=== PATIENT | male | born 1955 | race Caucasian/White ===

== ENCOUNTER 2022-12-10 14:48 | Inpatient (IN) | payer MEDICARE, OTHER ==
[~2022-12-10] VITALS: Ht 170.2 cm; Wt 100.0 kg
--- NOTE | 2022-12-10 15:00 | NUR ---
ARRIVED AT BEDSIDE. PT ALERT AND ORIENTED. SPEECH IS CLEAR. 1510 TELE NEURO EXAM COMPLETED 1540 PT ON WARFARIN FOR CHRONIC AFLUTTER, HOWEVER INR IS SUB THERAPEUTIC. CONSIDERING TNK. 1600 PT DECLINING TNK, FEELS IS IMPROVING. PT HAS HAD PER HIS DESCRIPTION 7 PRIOR TIAS POSSIBLE PRIOR STROKES. HAS CML AND IS TO BEGIN TX UPON RETURN TO [facility].
--- NOTE | 2022-12-10 15:00 | NUR ---
TO CT FOR CTA WITH GFR OF 38. PT STRUGGLES WITH CHRONIC RENAL ISSUES. AWARE.
[2022-12-10 15:25] LABS: BASOPHILS # (AUTO) 0.3 X10'3 (0-0.2); BASOPHILS % (AUTO) 0.8 % (0-1); EOSINOPHILS # (AUTO) 0.7 X10'3 (0-0.9); EOSINOPHILS % (AUTO) 1.9 % (0-6); HEMATOCRIT 36.6 % (42.0-52.0); HEMOGLOBIN 11.4 g/dl (14.0-17.9); LYMPHOCYTES # (AUTO) 2.1 X10'3 (1.1-4.8); LYMPHOCYTES % (AUTO) 5.6 % (21-51); MEAN CORPUSCULAR HEMOGLOBIN 30.2 PG (27.0-31.0); MEAN CORPUSCULAR HGB CONC 31.3 g/dL (33.0-36.5); MEAN CORPUSCULAR VOLUME 96.5 FL (78-98); MONOCYTES # (AUTO) 2.9 X10'3 (0-0.9); MONOCYTES % (AUTO) 7.6 % (2-12); NEUTROPHILS # (AUTO) 31.9 X10'3 (1.8-7.7); NEUTROPHILS % (AUTO) 84.1 % (42-75); PLATELET COUNT 731 X10'3 (140-440); RED BLOOD COUNT 3.79 X10'6 (4.70-6.10); RED CELL DISTRIBUTION WIDTH 21.6 % (11.5-14.5)
--- NOTE | 2022-12-10 15:30 | NUR ---
PT SAT AT EDGE OF Strap VERY SHAKEY. ABLE TO STAND WITH STANDBY ASSIST. ABLE TO BEAR WT EQUALLY. VISION IMPROVED. VISION DESCRIBED A LITTLE BLURRY YET IN RIGHT EYE.
[2022-12-10 15:35] LABS: APTT 31 SECONDS (22-32)
[2022-12-10 15:38] LABS: ALANINE AMINOTRANSFERASE 35 U/L (12-78); ALBUMIN 3.7 G/DL (3.4-5.0); ALKALINE PHOSPHATASE 64 IU/L (46-116); ANION GAP 7 (8-16); ASPARTATE AMINO TRANSFERASE 30 U/L (10-37); BILIRUBIN,TOTAL 0.3 MG/DL (0.1-1.0); BLOOD UREA NITROGEN 24 MG/DL (7-18); BUN/CREATININE RATIO 13.6 (5.4-32.0); CALCIUM 9.4 MG/DL (8.5-10.1); CHLORIDE 99 MMOL/L (99-107); CREATININE 1.77 MG/DL (0.60-1.10); GLUCOSE 396 MG/DL (70-104); POTASSIUM 4.2 MMOL/L (3.5-5.1); SODIUM 134 MMOL/L (135-145); TOTAL CARBON DIOXIDE 27.7 MMOL/L (24-32); TOTAL PROTEIN 7.4 G/DL (6.4-8.2); eGFR 38 ML/MIN
--- NOTE | 2022-12-10 15:40 | NUR ---
Ataxia noted on the right with finger to nose and heel to lomeli. Mild right arm and leg weakness, able to lift and hold both extremities after initial dip.
[2022-12-10 15:44] LABS: MAGNESIUM 2.1 MG/DL (1.5-2.4)
[2022-12-10 16:28] LABS: TOTAL CELLS COUNTED 100
[2022-12-10 16:29] LABS: ANISOCYTOSIS 3+; PLATELET ESTIMATE INCREASED
[2022-12-10 16:30] LABS: LARGE PLATELETS FEW
[2022-12-10] MEDS ORDERED: iohexol 350MG/ML 100ml bottle IV ONE (16:40)
--- NOTE | 2022-12-10 17:17 | NUR ---
1540 # 20 ANGIOCATH INSERTED WITH SINGLE ATTEMPT INTO RIGHT UPPER INNER ARM.
--- NOTE | 2022-12-10 17:25 | NUR ---
PT INTIALLY C/O WHITE LIGHTS IN BOTH EYES AND BLURRED VISION, WHICH HAS IMPROVED. PTS SPOUSE SAYS HE HAS RIGHT SIDED WEAKNESS WHEN HE HAS HIS "TIAS." WHICH IMPROVE OVER TIME.
--- NOTE | 2022-12-10 17:42 | NUR ---
's phone number: Carmen Mcmanus [phone] (cell phone)
[2022-12-10] MEDS ORDERED: morphine 4 MG/ML inj SYRINge IV ONE (17:55)
[2022-12-10] MEDS ORDERED: glucagon, human recombinant 1mg kit SUBCUT PRN (22:45)
[2022-12-10] MEDS ORDERED: MESSAGE TO PHARMACY PO ONE (22:45)
[2022-12-10] MEDS ORDERED: dextrose 50%-water 50ml dispensing syringe IV PRN ×2 (22:45)
[2022-12-10] MEDS ORDERED: DEXTROSE 15 GM of carb/4 tabs (each vial/BOTTLE has 4 tablets) PO PRN ×2 (22:45)
[2022-12-11] VITALS (7 sets, daily range): BP systolic 120–162; BP diastolic 53–72
[2022-12-11] MEDS ORDERED: normal saline 1000ml 1,000 ML IV SCH (01:40)
[2022-12-11] MEDS ORDERED: diphenhydrAMINE 25mg capsule PO PRN (01:40)
[2022-12-11] MEDS ORDERED: acetaminophen 325mg tablet PO PRN ×2 (01:40)
[2022-12-11] MEDS ORDERED: acetaminophen 650mg rectal suppository RC PRN (01:40)
[2022-12-11] MEDS ORDERED: HYDROcodone/acetaminophen 5mg/325mg tablet PO PRN (01:40)
[2022-12-11] MEDS ORDERED: magnesium hydroxide 30ml (MOM) UD suspension PO PRN (01:40)
[2022-12-11] MEDS ORDERED: ondansetron 4mg rapidly disintigrating tab PO PRN (01:40)
[2022-12-11] MEDS ORDERED: bisacodyl 10mg suppository rectal RC PRN (01:40)
[2022-12-11] MEDS ORDERED: morphine 2 MG/ML inj. syringe IV PRN (01:40)
[2022-12-11] MEDS ORDERED: ondansetron/PF 4mg/2ml inj IV PRN (01:40)
[2022-12-11] MEDS ORDERED: diphenhydrAMINE 50 mg/ml inj IV PRN (01:40)
[2022-12-11] MEDS ORDERED: mag hydrox/Alum hydrox/simeth 30ml oral suspension PO PRN (01:40)
[2022-12-11 02:00] LABS: HEMOGLOBIN A1C 8.6 % (4.5-6.2)
[2022-12-11 02:13] LABS: PHOSPHORUS 4.7 MG/DL (2.3-4.5)
[2022-12-11] MEDS ORDERED: FURO20TA4 PO (02:26)
[2022-12-11] MEDS ORDERED: DULO60CA65 PO (02:26)
[2022-12-11] MEDS ORDERED: ESCI-8 PO (02:26)
[2022-12-11] MEDS ORDERED: OMEP20TA43 PO (02:26)
[2022-12-11] MEDS ORDERED: FENO48TA10 PO (02:26)
[2022-12-11] MEDS ORDERED: CARV6.253 PO (02:26)
[2022-12-11] MEDS ORDERED: PRAV80TA3 PO (02:28)
[2022-12-11] MEDS ORDERED: WARF-55 PO (02:28)
[2022-12-11] MEDS ORDERED: TIZA-189 PO (02:28)
[2022-12-11] MEDS ORDERED: VALS160T30 PO (02:28)
[2022-12-11] MEDS: HYDROcodone/acetaminophen 10/325mg tab PO PRN ×4 (03:31→22:47)
[2022-12-11] MEDS: insulin Lispro (HumaLOG) vial - multi-dose SQ SCH ×5 (04:13→21:46)
--- NOTE | 2022-12-11 06:29 | NUR ---
Problems reprioritized. Patient report given, questions answered & plan of care reviewed with SHYLA VIEYRA.
--- NOTE | 2022-12-11 06:45 | NUR ---
Patient in room [facility]. I have received report from Jing MANSFIELD and had the opportunity to ask questions and assume patient care.
[2022-12-11 06:58] LABS: CHOL/HDL RATIO 8.8 (0.00-4.99); CHOLESTEROL 193 MG/DL (0-200); HDL CHOLESTEROL 22 MG/DL (35-60); LDL CHOLESTEROL 66 MG/DL (50-100); TRIGLYCERIDES 543 MG/DL (20-135)
[2022-12-11] MEDS: atorvastatin 10mg tablet PO SCH (07:36)
[2022-12-11] MEDS: docusate sod 100mg capsule PO SCH ×2 (07:37→19:33)
[2022-12-11] MEDS: pantoprazole 40mg Tablet.DR PO SCH (07:37)
[2022-12-11] MEDS ORDERED: furosemide 10 MG/1 ML 10ml inj IV SCH (08:00)
[2022-12-11 08:26] LABS: CLARITY,URINE CLEAR (Clear); COLOR,URINE YELLOW (Yellow); GLUCOSE, URINE >=1000 mg/dl (Neg); KETONES,URINE NEGATIVE (Neg); LEUKOCYTE ESTERASE ,URINE NEGATIVE (Neg); NITRITES, URINE NEGATIVE (Neg); OCCULT BLOOD,URINE NEGATIVE (Neg); PROTEIN,URINE NEGATIVE (Neg); UROBILINOGEN,URINE 0.2 E.U/dL (0.2-1.0)
[2022-12-11 08:30] LABS: UA COLLECTION TYPE CLN CATCH MIDSTREAM
[2022-12-11 08:32] LABS: SQUAMOUS EPITHELIAL CELL,UR FEW /LPF (FEW)
[2022-12-11 08:35] LABS: BACTERIA,URINE FEW /HPF (Neg); RBC,URINE 0-2 /HPF (0-2); SPERM FEW /HPF (NEGATIVE); WBC,URINE 0-4 /HPF (0-4)
[2022-12-11 08:36] LABS: AMORPHOUS URATES 1+
[2022-12-11 08:58] LABS: TOTAL CELLS COUNTED 100
[2022-12-11 09:00] LABS: ANISOCYTOSIS 3+; PLATELET ESTIMATE INCREASED
[2022-12-11 09:01] LABS: LARGE PLATELETS FEW
[2022-12-11 09:02] LABS: GIANT PLATELET FEW
[2022-12-11 09:03] LABS: POLYCHROMASIA FEW
[2022-12-11 09:05] LABS: TOXIC GRANULATION 2+
[2022-12-11 09:23] LABS: HEMATOCRIT 37.2 % (42.0-52.0); HEMOGLOBIN 11.6 g/dl (14.0-17.9); MEAN CORPUSCULAR HGB CONC 31.4 g/dL (33.0-36.5); MEAN CORPUSCULAR VOLUME 95.8 FL (78-98); RED BLOOD COUNT 3.88 X10'6 (4.70-6.10); RED CELL DISTRIBUTION WIDTH 22.2 % (11.5-14.5)
[2022-12-11 09:24] LABS: MEAN PLATELET VOLUME 9.9 FL (7.4-10.4); PLATELET COUNT 691 X10'3 (140-440)
--- NOTE | 2022-12-11 10:01 | NUR ---
Pt awake and alert, symptoms have resolved. Still has some minor blurring in right eye..Will start asa this morning. Spoke with Dr Charles briefly this morning. Pt hoping for discharge tomorrow.
--- NOTE | 2022-12-11 10:03 | NUR ---
PAGER ID: [phone] MESSAGE: Nuzhat Surg [phone] Re: [id number] Yonathan Please call re: Eliquis order. Want to confirm 5 mg Eliquis PO BID? Patients Creatnine 1.77 Addendum: 12/11/22 at 1032 by Nuzhat Edward RN Per Zamzam Stroke RN spoke to pharmacy and patient is not less than 60 kg , over the age of 78 and creatnine over 1.5. since patient only meets one criteria ok to given Eliquis 5mg PO BID.
[2022-12-11] MEDS ORDERED: apixaban 5mg tablet PO SCH (10:05)
[2022-12-11] MEDS: apixaban 5mg tablet PO SCH ×2 (10:39→19:34)
[2022-12-11] MEDS: aspirin 81mg, enteric-coated 1 TAB TABLET.DR PO SCH (10:39)
[2022-12-11] MEDS: morphine 2 MG/ML inj. syringe IV PRN ×2 (10:42→17:38)
--- NOTE | 2022-12-11 14:56 | NUR ---
DM Consult: Pt hx T2DM A1C 8.6% takes no meds at home per EMR. Pt admit DX CVA w/ TG 543mg/dl, HDL 22, and Glu 284-396mg/dl to start glycemic protocol tonight per EMR. Pt seen by RD for written/verbal heart healthy/DM diet eds w/ RD contact information provided. Pt reports eats out occasionally w/ but otherwise has 'strict' diet and takes medications at home to assist maintaining lipids WNL. Pt taken to MRI during start of RD visit; written eds w/ RD contact information left at bedside and pt encouraged to contact dietitian's office if nutrition questions/concerns. Pt would benefit from verbal ed f/u reinforcement prior to discharge. Addendum: 12/11/22 at [address] Amended: Links added.
[2022-12-11] MEDS: cyclobenzaprine 10mg tablet PO SCH (15:55)
--- NOTE | 2022-12-11 18:51 | NUR ---
Problems reprioritized. Patient report given, questions answered & plan of care reviewed with Violeta MANSFIELD.
[2022-12-11] MEDS: carvedilol 6.25mg tablet PO SCH (19:33)
[2022-12-11] MEDS ORDERED: temazepam 15mg capsule PO PRN (21:00)
[2022-12-11] MEDS ORDERED: insulin glargine (Lantus) pen - multi-dose SQ SCH (21:00)
[2022-12-12] MEDS: cyclobenzaprine 10mg tablet PO SCH ×2 (00:28→08:21)
[2022-12-12] MEDS: HYDROcodone/acetaminophen 10/325mg tab PO PRN ×2 (03:45→08:21)
[2022-12-12 05:41] VITALS: BP 112/47
[2022-12-12 06:00] VITALS: BP 124/63
[2022-12-12 06:04] LABS: MEAN CORPUSCULAR HEMOGLOBIN 30.8 PG (27.0-31.0); MEAN PLATELET VOLUME 9.7 FL (7.4-10.4)
[2022-12-12 06:07] LABS: HEMATOCRIT 36.6 % (42.0-52.0); HEMOGLOBIN 11.7 g/dl (14.0-17.9); PLATELET COUNT 705 X10'3 (140-440); RED BLOOD COUNT 3.81 X10'6 (4.70-6.10); RED CELL DISTRIBUTION WIDTH 21.7 % (11.5-14.5)
[2022-12-12 06:12] LABS: WHITE BLOOD COUNT 38.1 X10'3 (4.5-11.0)
--- NOTE | 2022-12-12 06:20 | NUR ---
Problems reprioritized. Patient report given, questions answered & plan of care reviewed with SHYLA BLEVINS.
[2022-12-12 06:25] LABS: ALANINE AMINOTRANSFERASE 27 U/L (12-78); ALBUMIN 3.6 G/DL (3.4-5.0); ALKALINE PHOSPHATASE 61 IU/L (46-116); ANION GAP 8 (8-16); ASPARTATE AMINO TRANSFERASE 24 U/L (10-37); BILIRUBIN,TOTAL 0.4 MG/DL (0.1-1.0); BLOOD UREA NITROGEN 27 MG/DL (7-18); BUN/CREATININE RATIO 20.3 (5.4-32.0); CALCIUM 9.3 MG/DL (8.5-10.1); CHLORIDE 99 MMOL/L (99-107); CHOL/HDL RATIO 9.1 (0.00-4.99); CHOLESTEROL 191 MG/DL (0-200); CREATININE 1.33 MG/DL (0.60-1.10); GLUCOSE 295 MG/DL (70-104); HDL CHOLESTEROL 21 MG/DL (35-60); LDL CHOLESTEROL 56 MG/DL (50-100); POTASSIUM 4.7 MMOL/L (3.5-5.1); SODIUM 136 MMOL/L (135-145); TOTAL CARBON DIOXIDE 28.9 MMOL/L (24-32); TOTAL PROTEIN 7.3 G/DL (6.4-8.2); TRIGLYCERIDES 575 MG/DL (20-135); eGFR 53 ML/MIN
[2022-12-12 06:31] LABS: TOTAL CELLS COUNTED 100
[2022-12-12 06:32] LABS: GIANT PLATELET FEW; LARGE PLATELETS MODERATE; PLATELET ESTIMATE INCREASED
[2022-12-12 06:33] LABS: ANISOCYTOSIS 3+
--- NOTE | 2022-12-12 06:51 | NUR ---
Patient in room [facility]. I have received report from EMERY MANSFIELD and had the opportunity to ask questions and assume patient care.
[2022-12-12] MEDS ORDERED: non-formulary drug (Pravastatin Sodium 1 TAB) PO SCH (08:00)
[2022-12-12] MEDS ORDERED: ESCITALOPRAM OXALATE 5 MG TABLET PO SCH (08:00)
[2022-12-12] MEDS ORDERED: furosemide 20MG tablet PO SCH (08:00)
[2022-12-12] MEDS ORDERED: duloxetine 30mg CAPSULE.DR PO SCH (08:00)
[2022-12-12] MEDS ORDERED: losartan 50mg tablet PO SCH (08:00)
[2022-12-12] MEDS ORDERED: non-formulary drug (Omeprazole 2 TAB) PO SCH (08:00)
[2022-12-12] MEDS ORDERED: fenofibrate 48mg tablet PO SCH (08:00)
[2022-12-12] MEDS: atorvastatin 10mg tablet PO SCH (08:21)
[2022-12-12] MEDS: pantoprazole 40mg Tablet.DR PO SCH (08:22)
[2022-12-12] MEDS: carvedilol 6.25mg tablet PO SCH (08:22)
[2022-12-12] MEDS: aspirin 81mg, enteric-coated 1 TAB TABLET.DR PO SCH (08:22)
[2022-12-12] MEDS: apixaban 5mg tablet PO SCH (08:23)
[2022-12-12] MEDS: docusate sod 100mg capsule PO SCH (08:25)
[2022-12-12 10:00] VITALS: BP 137/55
[2022-12-12] MEDS: insulin Lispro (HumaLOG) vial - multi-dose SQ SCH (10:06)
[2022-12-12] MEDS ORDERED: ASPI81TA52 PO (10:18)
[2022-12-12] MEDS ORDERED: APIX5TAB3 PO (10:18)
[2022-12-12] MEDS ORDERED: HYDR-3972 PO (10:28)
--- NOTE | 2022-12-12 10:30 | NUR ---
F/u 12/12: Pt/SO seen by BELTRAN at bedside for verbal DM/HH diet ed f/u. Pt politely declines further diet education at this time. RD encouraged pt/SO to contact dietitian's office if further nutrition questions/concerns. Addendum: 12/12/22 at [address] Amended: Links added.
--- NOTE | 2022-12-12 12:04 | NUR ---
PAGER ID: [phone] MESSAGE: Lester Mcmanus#[phone]- Pt needs to go, can we come get the prescription for [place] please. Thank you. he is getting anxious. Thank you. Mamta Hobbs [phone]
== END 2022-12-12 12:28 | disposition home or self-care (01) | DRG 64 ==
LOC: ER 14:48 → UNDOADMIN 12-11 00:16 → ED HOLD 12-11 00:16 → EDBEDREQ 12-11 01:58 → SUR 3N 12-11 02:42
PROVIDERS: ADMIT Family Medicine; ATTEND Internal Medicine
PROC: B3251ZZ Computerized Tomography (CT Scan) of Bilateral Common Carotid Arteries using Low Osmolar Contrast (ICD-10-PCS; principal; 2022-12-10)
PROC: B32G1ZZ Computerized Tomography (CT Scan) of Bilateral Vertebral Arteries using Low Osmolar Contrast (ICD-10-PCS; 2022-12-10)
PROC: B32R1ZZ Computerized Tomography (CT Scan) of Intracranial Arteries using Low Osmolar Contrast (ICD-10-PCS; 2022-12-10)
PROC: B3281ZZ Computerized Tomography (CT Scan) of Bilateral Internal Carotid Arteries using Low Osmolar Contrast (ICD-10-PCS; 2022-12-10)
DX: I63.9 Cerebral infarction, unspecified (principal); I50.33 Acute on chronic diastolic (congestive) heart failure; G45.3 Amaurosis fugax; I48.92 Unspecified atrial flutter; I69.351 Hemiplegia and hemiparesis following cerebral infarction affecting right dominant side; N17.9 Acute kidney failure, unspecified; C92.90 Myeloid leukemia, unspecified, not having achieved remission; I13.0 Hypertensive heart and chronic kidney disease with heart failure and stage 1 through stage 4 chronic kidney disease, or unspecified chronic kidney disease; E11.22 Type 2 diabetes mellitus with diabetic chronic kidney disease; N18.9 Chronic kidney disease, unspecified; D64.9 Anemia, unspecified; K74.60 Unspecified cirrhosis of liver; E11.65 Type 2 diabetes mellitus with hyperglycemia; G89.4 Chronic pain syndrome; I48.91 Unspecified atrial fibrillation; I69.320 Aphasia following cerebral infarction; Z79.899 Other long term (current) drug therapy
CPT/HCPCS: 36415; 70450; 70496; 70498; 70551; 71045; 80053; 80061; 81001; 82948; 83036; 83735; 83880; 84100; 84145; 84443; 84484; 85007; 85025; 85610; 85730; 87081; 93005; 93306; 96374; 97110; 97162; 97530; 99291; G0378; J1815; J1940; J2270; J3490; J7030; Q9967